=== PATIENT | male | born 1975 | race Caucasian/White ===

== ENCOUNTER 2024-01-13 22:21 | Emergency (ER) | payer OTHER, SELFPAY ==
[2024-01-13 22:23] VITALS: BP 172/110
--- NOTE | 2024-01-13 22:47 | ED.GENMED ---
History of Present Illness
<Zachary Alvarez MD, Resident - Last Filed: 01/14/24 01:31>
General
Chief Complaint: Dizziness
Source: patient
Time Seen by Provider: 01/13/24 22:35
Travel History
Have you traveled to any high risk areas for coronavirus over the past 14 days?: No
Have you had any contact with someone who has COVID-19?: No
Do you have any symptoms of coronavirus? Fever > 100 degrees, chills, cough, shortness of breath, sore throat, loss of taste or smell, muscle aches, or headache?: No
History of Present Illness
History of Present Illness:
Narendra Bah, age 48, has had 3-4 episodes of dizziness in the past 9 days. Today, he started feeling dizzy getting out of a chair and almost fell. He feels that 'the room is spinning'. These episodes last for a few minutes before subsiding.
Denies any other associated symptoms or recent changes to his health. He has noted that some of these episodes have come on after he has had alcohol, and says that he was also feeling dehydrated today when he had the episode.
Past History
<Zachary Alvarez MD, Resident - Last Filed: 01/14/24 01:31>
Past History
ED Past Medical History: None
ED Past Surgical History: Other (RIGHT ACL repair)
Social History
Tobacco: Non-smoker
Alcohol: Occasional
Drug: None
Personal:
Living: with family
Employment: Employed
Review of Systems
<Zachary Alvarez MD, Resident - Last Filed: 01/14/24 01:31>
Review of Systems
All Other Systems: Not applicable
Constitutional: Reports no symptoms
EENT: Reports no symptoms
Respiratory: Reports no symptoms
Cardiac: Reports no symptoms
ABD/GI: Reports no symptoms
: Reports no symptoms
Musculoskeletal: Reports no symptoms
Skin: Reports no symptoms
Neurological: Reports no symptoms
Endocrine: Reports no symptoms
Hematologic/Lymphatic: Reports no symptoms
Psychiatric: Reports no symptoms
Phy Exam
<Zachary Alvarez MD, Resident - Last Filed: 01/14/24 01:31>
General Physical Exam
General Presentation: well appearing and no apparent distress
General Skin: warm and dry
General Habitus: normal
General Mental: alert
General Hydration: appears well hydrated
ENT Exam
ENT Exam: EOMI, pharynx normal, neck supple and normocephalic
Eye Exam
Eye Exam: PERRL, cornea clear and conjunctiva normal
Cardiovascular Exam
Cardiovascular Exam: regular rate/rhythm, no edema, no murmur and normal peripheral pulses
Pulmonary Exam
Pulmonary Exam: lungs clear, no respiratory distress, no rales, no crackles, no rhonchi, no stridor, no wheezing and no cough
Gastrointestinal Exam
Gastrointestinal Exam: normal bowel sounds, non tender, soft, no organomegaly, no pulsatile mass and non distended
Neurological Exam
Neurological Exam: alert, oriented x3, no motor deficits and speech normal
Musculoskeletal Exam
Musculoskeletal Exam: full ROM and no edema
Skin Exam
Skin Exam: normal color, warm/dry, no rash and no petechia
Psychiatric Exam
Psychiatric Exam: normal mood/affect
Course
<Zachary Alvarez MD, Resident - Last Filed: 01/14/24 01:31>
Orders/Labs/Results
Orders:
Orders
01/13/24 22:27
ECG [Electrocardiogram (*1)] Urgent
Reason for Study: Vertigo / Dizzy
EKG- Treatment ONCE
01/13/24 23:12
Basic Metabolic Panel Urgent
Complete Blood Count/No Diff Urgent
01/13/24 23:49
Orthostatic VS- Treatment ONCE
01/14/24 00:31
0.9% Sodium Chloride 1000 ml [Nss] 1,000 ml IV BOLUS
Abnormal Lab Results
01/13/24
23:12
RBC 4.38 L 10^6/uL
(4.70-6.10)
MCH 32.0 H pg
(27.0-31.0)
MPV 11.0 H fL
(7.4-10.4)
BUN 33 H mg/dl
(9-20)
Creatinine 1.6 H mg/dL
(0.7-1.3)
01/13/24 23:12
01/13/24 23:12
Vital Signs
Initial and Last Documented VS:
Initial Vital Signs
Temp Pulse Resp BP Pulse Ox
98.1 F 58 18 172/110 98
01/13/24 22:23 01/13/24 22:23 01/13/24 22:23 01/13/24 22:23 01/13/24 22:23
Last Documented Vital Signs
Temp Pulse Resp BP Pulse Ox
98.1 F 53 19 134/96 96
01/13/24 22:23 01/14/24 01:15 01/14/24 01:15 01/14/24 01:00 01/14/24 01:15
<Antoinette Brady, DO - Last Filed: 01/14/24 01:27>
Orders/Labs/Results
Orders:
Orders
01/13/24 22:27
ECG [Electrocardiogram (*1)] Urgent
Reason for Study: Vertigo / Dizzy
EKG- Treatment ONCE
01/13/24 23:12
Basic Metabolic Panel Urgent
Complete Blood Count/No Diff Urgent
01/13/24 23:49
Orthostatic VS- Treatment ONCE
01/14/24 00:31
0.9% Sodium Chloride 1000 ml [Nss] 1,000 ml IV BOLUS
Abnormal Lab Results
01/13/24
23:12
RBC 4.38 L 10^6/uL
(4.70-6.10)
MCH 32.0 H pg
(27.0-31.0)
MPV 11.0 H fL
(7.4-10.4)
BUN 33 H mg/dl
(9-20)
Creatinine 1.6 H mg/dL
(0.7-1.3)
01/13/24 23:12
01/13/24 23:12
Vital Signs
Initial and Last Documented VS:
Initial Vital Signs
Temp Pulse Resp BP Pulse Ox
98.1 F 58 18 172/110 98
01/13/24 22:23 01/13/24 22:23 01/13/24 22:23 01/13/24 22:23 01/13/24 22:23
Last Documented Vital Signs
Temp Pulse Resp BP Pulse Ox
98.1 F 53 19 134/96 96
01/13/24 22:23 01/14/24 01:15 01/14/24 01:15 01/14/24 01:00 01/14/24 01:15
<Antoinette Brady, DO - Last Filed: 01/14/24 01:27>
*Pulse Oximetry
Patient hypoxic: no
*EKG
Interpreted by ED Provider?: Yes
Interpretation: normal
Comparison EKG: no comparison EKG present
Rate: bradycardiac
Rhythm: sinus
[place]: normal axis
Interval: normal interval
QRS Pattern: normal QRS
Ischemia: no ischemia
*Agile Test Lead Interpretation
Rate: normal
Interpretation: normal
Rhythm: sinus
*Critical Care Note
Total Time (30-74mins, 75-104mins- exclusive of procedures): Not Applicable
ED Attending Note
<Zachary Alvarez MD, Resident - Last Filed: 01/14/24 01:31>
-
Portions of this chart may have been created with voice recognition software.� Occasional wrong word or��sound alike� substitutions may have occurred due to the inherent limitations of voice recognition software.
<Antoinette Brady DO - Last Filed: 01/14/24 01:27>
ED Attending Note
Patient seen and examined by attending physician: Yes
I performed a history and physical exam of patient and discussed management with resident, I reviewed resident's note and agree with documented findings and plan of care.: Yes
ED Attending Note:
This is a 48-year-old gentleman who has history of seasonal allergic rhinitis who presents with intermittent primarily positional dizziness that began 9 days ago after rolling over in bed to the left and lifting his head. This incited acute, brief
dizziness which she describes as a sense of spinning without associated nausea nor other associated symptoms. Dizziness resolved within a few seconds and did not recur until 3 to 4 days later, similar in nature with rolling over to the left,
similarly brief in nature.
Tonight however he got up out of an easy chair and suddenly felt off balance, lost his balance to the left with near fall. He then had another brief episode of dizziness tonight after lying down in bed and turning over to the left.
Prior to 9 days ago, no history of similar episodes in the past. No other associated symptoms.
Currently asymptomatic.
He does admit to somewhat poor sleep recently as he has been traveling by air a lot over the past few weeks. He denies nasal congestion or ear pain, no headache, no fever.
He takes no medicines on a daily basis.
Admits to occasional alcohol use. No drug use. Non-smoker.
48-year-old male appears his stated age, bright and alert, pleasant, appears in no acute distress.
HEENT: Left TM is retracted without effusion. Right TM is clear. Nares have moderately boggy pale blue turbinates with scant clear rhinorrhea. Posterior pharynx is clear.
Neuro: No focal neurodeficits. Climax-Hallpike maneuver is negative.
History and exam most consistent with benign paroxysmal positional vertigo.
He does have an element of allergic rhinitis as well as left eustachian tube dysfunction on exam and this may be aggravated with recent air travel and may be cause for his vertiginous symptoms.
Must also consider dehydration, electrolyte abnormality, less likely anemia.
He does admit to chronically poor oral hydration and perhaps somewhat more dehydrated recently due to air travel, less attention to self needs.
Other consideration is orthostatic symptoms especially with symptoms upon standing tonight thus will check orthostatic vital signs.
Will check labs and will plan on IV fluid hydration.
If vertiginous symptoms recur we will consider a dose of meclizine.
No focal neurodeficits, no headache, thus no indication for CT of the head.
01/14/2024 0040 AM
Labs show elevated BUN and creatinine of 33/1.6. I have no old labs to compare but patient does admit to somewhat chronically poor oral intake on a daily basis, more so over the past few weeks which could certainly be contributing factor to
elevated BUN and creatinine. He also states that he has been told in the past that his creatinine generally runs mildly elevated but not in the 'danger level' He denies significant NSAID use.
IV fluids infusing.
Orthostatic vital signs are negative.
For allergic rhinitis/left eustachian tube dysfunction, patient has Flonase and Zyrtec at home. Recommend he resume these on a daily basis.
Will also add meclizine for as needed dizziness.
Discussed importance of staying well-hydrated on a daily basis. Avoid alcoholic beverages at least over the next few weeks.
Prompt follow-up with PCP for recheck.
Patient currently does not have a PCP. He has been referred to our family practice residency clinic.
Discharge Plan
Departure
Patient Disposition: Home (Routine Discharge)
Date of Disposition: 01/14/24
Time of Disposition: 01:23
Patient with high blood pressure during this ER visit?: Yes
Condition: Good
Discharge Problem:
Benign paroxysmal positional vertigo of left ear, Allergic rhinitis, Dysfunction of left eustachian tube, Dehydration
Instructions: Vertigo (a type of dizziness), Dehydration, Adult ED, BLOOD PRESSURE
Prescriptions:
New
meclizine 25 mg tablet
25 mg PO QID PRN (Reason: dizziness, nausea) Qty: 20 0RF
Referrals:
[facility] [Provider Group] - Call in 1-3 days for appt
[facility],* [Family Provider] - Call in 1-3 days for appt
Activity Restrictions/Additional Instructions:
Resume your daily Flonase and Zyrtec.
Stay well-hydrated on a daily basis as well as temporarily avoid alcoholic beverages over the next few weeks.
Due to elevated creatinine I also want you to temporarily avoid NSAIDs such as Motrin, Advil, Aleve, ibuprofen. You can take Tylenol as needed for pain or fever.
A prescription for meclizine has been called to your pharmacy which you can take up to 4 times daily as needed for dizziness.
Follow-up with your primary care physician for recheck and for repeat labs to reassess elevation of BUN/creatinine.
Interventions
Interventions:
*Risk Screen - Suicide Last Done: 01/13/24 23:23
*General Assessment Last Done: 01/13/24 22:23
*Neglect/Abuse Screening Last Done: 01/13/24 23:23
ED- Fall Risk Assessment Last Done: 01/14/24 01:26
*ED COVID-19 Vaccine History Last Done: 01/13/24 23:22
*Nursing Disposition Last Done: 01/14/24 01:26
ED- Neurological Assessment Last Done: 01/13/24 23:08
ED- Cardiac Assessment Last Done: 01/14/24 01:27
ED Swallowing Screen Last Done: 01/13/24 23:10
Discharge Date and Time
Discharge Date/Time: 01/14/24 01:29
Print Language: UPPER SORBIAN
[2024-01-13 23:40] LABS: Hematocrit 39.7 % (39.0-52.0); Mean Corp Hgb Conc. 35.3 g/dL (33.0-37.0); Mean Corpuscular Volume 90.6 fL (80.0-94.0); Platelet Count 217 10^3/uL (130-400); Red Blood Cell Count 4.38 10^6/uL (4.70-6.10); Red Cell Dist. Width 12.8 % (11.5-14.5)
[2024-01-14 00:05] LABS: Blood Urea Nitrogen 33 mg/dl (9-20); Calcium 9.4 mg/dl (8.4-10.2); Carbon Dioxide 25 mmol/L (22-30); Chloride 104 mmol/L (98-107); Glucose 94 mg/dl (70-99); Potassium 4.6 mmol/L (3.5-5.1); Sodium 138 mmol/L (135-145); eGFR 52.49
[2024-01-14 00:19] VITALS: BP 128/89; BMI 27.1
[2024-01-14 00:21] VITALS: BP 128/89
[2024-01-14 00:23] VITALS: BP 126/95; BP 128/89; BP 141/102; PULSE 59; PULSE 61; PULSE 66
[2024-01-14 00:24] VITALS: BP 141/102
[2024-01-14 00:27] VITALS: BP 126/95
[2024-01-14] MEDS: NSS 1000 IV (00:33)
[2024-01-14 01:00] VITALS: BP 134/96
== END 2024-01-14 01:29 | disposition home or self-care (01) ==
LOC: EMR 22:21
PROVIDERS: Student in an Organized Health Care Education/Training Program; EMERGENCY PHYSICIAN Emergency Medicine
DX: H81.12 Benign paroxysmal vertigo, left ear (principal); J30.9 Allergic rhinitis, unspecified; E86.0 Dehydration
CPT/HCPCS: 99283; 96360; 80048; 85027; 93005